=== PATIENT | female | born 1945 | race Caucasian/White ===

== ENCOUNTER 2021-04-26 13:14 | Inpatient (IN) | payer MEDICARE, MEDICAID ==
[~2021-04-26] VITALS: Ht 170.2 cm; Wt 136.1 kg
[2021-04-26 14:08] LABS: BASOPHILS 0.5 % (0-2); EOSINOPHILS 0 % (0-7); HEMATOCRIT 38.7 % (36.0-48.0); HEMOGLOBIN 12.6 g/dL (12-16); LYMPHOCYTES 4.3 % (15-50); MCH 29.5 pg (26.0-34.0); MCHC 32.6 g/dL (31.0-37.0); MCV 90.5 fL (80.0-100.0); MEAN PLATELET VOLUME 9.2 fL (7.4-10.4); MONOCYTES 4.7 % (2-11); NEUTROPHILS 90.5 % (40-80); RBC 4.27 10x6/uL (4.00-5.40); RDW 15.7 % (11.5-14.5); WBC 11.2 10x3/uL (4.8-10.8)
[2021-04-26 14:17] LABS: ALBUMIN 3.8 g/dL (3.4-5.0); ANION GAP 12.8 mmol/L (8-16); BILIRUBIN - TOTAL 0.44 mg/dL (0.2-1.3); CALCIUM 8.9 mg/dL (8.5-10.1); CARBON DIOXIDE 28.9 mmol/L (21.0-32.0); CREATININE - SERUM 1.9 mg/dL (0.6-1.3); PROTEIN - SERUM 7.7 g/dL (6.4-8.2)
[2021-04-26 14:19] LABS: PLATELET COUNT 183 10x3/uL (130-400)
[2021-04-26 14:35] LABS: POTASSIUM - SERUM 2.7 mmol/L (3.5-5.1)
[2021-04-26 15:23] LABS: BILIRUBIN NEGATIVE (NEGATIVE); KETONE NEGATIVE mg/dL (< 1+); NITRITE NEGATIVE (NEGATIVE); PH 5.5 (5.0-8.0); UROBILINOGEN NORMAL mg/dL (< 2)
--- NOTE | 2021-04-26 16:59 | NUR ---
1ST K+ RIDER INFUSION COMPLETE AT 1610
--- NOTE | 2021-04-26 17:00 | NUR ---
2ND K+ RIDER INFUSION COMPLETE AT 1700
[2021-04-26 17:22] VITALS: BP 144/61
--- NOTE | 2021-04-26 17:37 | NUR ---
NS INFUSION AND K+ RIDER (3RD) INFUSIONS TO BE STOPPED IN ER AT 1800 AND CONT'D IN HOSPITAL
[2021-04-26 20:00] VITALS: BP 140/61
--- NOTE | 2021-04-26 20:00 | NUR ---
RECIEVED IN ROOM FROM ER, ALERT AND ORIENTIATED, FX TO RIGH TSHOULDER AND C/O PAIN TO BACK OF RIGHT KNEE, LIMITED MOVEMENT, CALLED TO GET MEDICATION LIST, STATES SHE GETS HER MEDS PRE PACKAGED AND HE GIVES THEM TO HER DAILY, SEE ASSESSMENT, CALL LIGHT IN REACH
[2021-04-26] MEDS ORDERED: GABAPENTIN300 MG PO (20:24)
[2021-04-26] MEDS ORDERED: CELEXA10 MG PO (20:25)
[2021-04-26] MEDS ORDERED: LIPITOR40 MG PO (20:25)
[2021-04-26] MEDS ORDERED: FUROSEMIDE20 MG PO (20:28)
[2021-04-26] MEDS ORDERED: GLIMEPIRIDE4 MG PO (20:29)
[2021-04-26] MEDS ORDERED: SYNTHROID75 MCG PO (20:30)
[2021-04-26] MEDS ORDERED: PROTONIX40 MG PO (20:31)
[2021-04-26] MEDS ORDERED: CLARITIN 10 MG10 MG PO (20:31)
[2021-04-26] MEDS ORDERED: POTASSIUM CHLO10 ME1 PO (20:32)
[2021-04-26] MEDS ORDERED: VESICARE10 MG PO (20:35)
[2021-04-26] MEDS ORDERED: MYSOLINE 50 MG50 MG PO (20:41)
[2021-04-26 22:42] LABS: CKMB 1.3 U/L (0.0-3.6); CREATINE KINASE 204 UL (21-215); TROPONIN-I < 0.017 ng/mL (0.000-0.060)
--- NOTE | 2021-04-26 23:00 | NUR ---
SLING PLACED TO RIGHT ARM, INCONTIENT OF STOOL, STATES HAS CHRONIC DIARRHEA
[2021-04-27] VITALS (7 sets, daily range): BP systolic 100–140; BP diastolic 50–67; BMI 47.1
[2021-04-27 06:53] LABS: BASOPHILS 0.1 % (0-2); EOSINOPHILS 0 % (0-7); HEMATOCRIT 38.5 % (36.0-48.0); HEMOGLOBIN 12.3 g/dL (12-16); IMMATURE GRANULOCYTES 0.3 % (0-5); LYMPHOCYTE ABS# 0.85 10x3/uL (1.18-3.74); LYMPHOCYTES 11.5 % (15-50); MCH 29.4 pg (26.0-34.0); MCHC 31.9 g/dL (31.0-37.0); MCV 92.1 fL (80.0-100.0); MEAN PLATELET VOLUME 11.3 fL (7.4-10.4); MONOCYTES 10.2 % (2-11); NEUTROPHIL ABS# 5.78 10x3/uL (1.56-6.13); NEUTROPHILS 77.9 % (40-80); PLATELET COUNT 192 10x3/uL (130-400); RBC 4.18 10x6/uL (4.00-5.40)
[2021-04-27 07:15] LABS: WBC 7.4 10x3/uL (4.8-10.8)
[2021-04-27 07:21] LABS: ALBUMIN 3.5 g/dL (3.4-5.0); ANION GAP 13.2 mmol/L (8-16); BILIRUBIN - TOTAL 0.42 mg/dL (0.2-1.3); CALCIUM 8.5 mg/dL (8.5-10.1); CREATININE - SERUM 1.7 mg/dL (0.6-1.3); POTASSIUM - SERUM 3.2 mmol/L (3.5-5.1); PROTEIN - SERUM 6.9 g/dL (6.4-8.2)
--- NOTE | 2021-04-27 13:30 | NUR ---
REHAB PRESCREEN RECEIVED. PATIENT IS [facility] AND WE WILL NEED BOTH HER OCCUPATIONAL THERAPY AND PHYSICAL THERAPY EVALUATIONS TO DO HER SCREEN. WE WILL CONTINUE TO FOLLOW. THANK YOU FOR THIS REFERRAL. MADELAINE MAY RN CLINICAL LIAISON, [facility].
[2021-04-28 00:16] VITALS: BP 110/56
[2021-04-28 04:25] VITALS: BP 108/50
[2021-04-28 06:30] LABS: BASOPHILS 0.5 % (0-2); EOSINOPHILS 0.5 % (0-7); HEMATOCRIT 32.7 % (36.0-48.0); HEMOGLOBIN 10.6 g/dL (12-16); LYMPHOCYTES 12.2 % (15-50); MCH 29.7 pg (26.0-34.0); MCHC 32.5 g/dL (31.0-37.0); MCV 91.4 fL (80.0-100.0); MEAN PLATELET VOLUME 9.3 fL (7.4-10.4); MONOCYTES 12.1 % (2-11); NEUTROPHILS 74.7 % (40-80); RBC 3.58 10x6/uL (4.00-5.40); RDW 15.7 % (11.5-14.5); WBC 6.9 10x3/uL (4.8-10.8)
[2021-04-28 06:49] LABS: ALBUMIN 2.8 g/dL (3.4-5.0); BILIRUBIN - TOTAL 0.41 mg/dL (0.2-1.3); CARBON DIOXIDE 28.7 mmol/L (21.0-32.0); CREATININE - SERUM 1.5 mg/dL (0.6-1.3); MAGNESIUM - SERUM 2.2 mg/dL (1.8-2.4); PROTEIN - SERUM 6.3 g/dL (6.4-8.2)
[2021-04-28 06:52] LABS: PLATELET COUNT 147 10x3/uL (130-400)
[2021-04-28 07:05] LABS: ANION GAP 9.7 mmol/L (8-16); POTASSIUM - SERUM 3.4 mmol/L (3.5-5.1)
--- NOTE | 2021-04-28 07:30 | NUR ---
ASSISTED WITH BED TRAN PER STAFF. VOIDED 200 CC ODIFEROUS URINE, SLIGHTLY CLOUDY. JOYCELYN CARE PER STAFF.
[2021-04-28 08:20] VITALS: BP 152/82
--- NOTE | 2021-04-28 09:01 | NUR ---
AWAKE AND ALERT. SITTING UP IN BED EATING BREAKFAST. LUNGS ARE CLEAR BILATERALLY BUT DIMINISHED IN LOWER LOBES, NO COUGH NOTED. SKIN IS INTACT WITHOUT REDNESS. MOVES ALL DIGITS ON RIGHT HAND FREELY. IV TO RIGHT HAND IS PATENT WITHOUT REDNESS AT INSERTION SITE. DENIES NEEDS.
--- NOTE | 2021-04-28 10:00 | NUR ---
ATE MOST OF BREAKFAST. TOOK AM MEDS WITHOUT DIFFICULTY. DENIES NEEDS.
--- NOTE | 2021-04-28 12:00 | NUR ---
FSBS 141. NO COVERAGE REQUIRED.
[2021-04-28 13:22] VITALS: BP 132/83
--- NOTE | 2021-04-28 19:52 | NUR ---
PATIENT RESTING IN BED WITH NO S/S OF DISTRESS AND DENIES NEEDS AT THIS TIME. BED IN LOWEST POSITION AND CALL LIGHT IN REACH. ENCOURAGED PATIENT TO CALL WITH NEEDS.
--- NOTE | 2021-04-28 19:53 | NUR ---
ATE MOST OF SUPPER. DENIES NEEDS. UP TO BR WITH ONE PERSON MIN ASSIST. NO BM AT THIS TIME JUST FLATUS. NO CHANGES NOTED.
[2021-04-28 20:00] VITALS: BP 122/56
--- NOTE | 2021-04-28 21:11 | NUR ---
ADMINISTERED MEDS PER ORDERS. PATIENT TANYA WELL. ENCOURAGED PATIENT TO CALL WITH NEEDS.
[2021-04-29] VITALS: BP 111/58
[2021-04-29 04:00] VITALS: BP 125/54
[2021-04-29 06:24] LABS: BASOPHILS 0.7 % (0-2); EOSINOPHILS 1.2 % (0-7); HEMATOCRIT 32.1 % (36.0-48.0); HEMOGLOBIN 10.7 g/dL (12-16); MCH 30.7 pg (26.0-34.0); MCHC 33.4 g/dL (31.0-37.0); MCV 91.9 fL (80.0-100.0); MEAN PLATELET VOLUME 9.6 fL (7.4-10.4); MONOCYTES 11.2 % (2-11); NEUTROPHILS 67.9 % (40-80); PLATELET COUNT 151 10x3/uL (130-400); RDW 15.5 % (11.5-14.5); WBC 5.3 10x3/uL (4.8-10.8)
[2021-04-29 07:13] LABS: ALBUMIN 2.6 g/dL (3.4-5.0); ANION GAP 13.3 mmol/L (8-16); BILIRUBIN - TOTAL 0.32 mg/dL (0.2-1.3); CALCIUM 8.1 mg/dL (8.5-10.1); CREATININE - SERUM 1.5 mg/dL (0.6-1.3); POTASSIUM - SERUM 3.3 mmol/L (3.5-5.1); PROTEIN - SERUM 6.1 g/dL (6.4-8.2)
--- NOTE | 2021-04-29 08:17 | NUR ---
AWAKE AND ALERT. ORIENTED X3. NO C/O AT THIS TIME. LUNGS ARE CLEAR BILATERALLY, NO COUGH NOTED. SKIN IS INTACT WITHOUT REDNESS. RIGHT ARM IN SLING, MOVES DIGITS FREELY. IV TO LEFT FOREARM IS PATENT WITHOUT REDNESS AT INSERTION SITE. DENIES NEEDS.
[2021-04-29 08:27] VITALS: BP 122/66
--- NOTE | 2021-04-29 09:25 | NUR ---
ATE MOST OF BREAKFAST. TOOK AM MEDS WITHOUT DIFFICULTY. REQUESTED AND GIVEN ONE HYDROCODONE FOR C/O RIGHT ARM PAIN LEVEL 5. WILL MONITOR.
--- NOTE | 2021-04-29 12:00 | NUR ---
FSBS 139. NO C/O AT THIS TIME. DENIES NEEDS.
[2021-04-29 13:02] VITALS: BP 116/56
--- NOTE | 2021-04-29 15:00 | NUR ---
RESTING QUIETLY IN BED AT THIS TIME. NO NEEDS NOTED.
[2021-04-29 17:27] VITALS: BP 131/69
--- NOTE | 2021-04-29 19:54 | NUR ---
ATE MOST OF SUPPER. DENIES NEEDS. NO CHANGES NOTED. ASSISTED WITH BED TRAN PER STAFF. VOIDED WITHOUT DIFFICULTY.
--- NOTE | 2021-04-29 19:55 | NUR ---
PATIENT RESTING IN BED WITH NO S/S OF DISTRESS AND REQUESTED A PAIN PILL. ADMINISTERED MEDS PER ORDERS. PATIENT TANYA WELL AND DENIES OTHER NEEDS AT THIS TIME. BED IN LOWEST POSITION AND CALL LIGHT IN REACH. ENCOURAGED PATIENT TO CALL WITH NEEDS.
[2021-04-29 20:00] VITALS: BP 119/41
[2021-04-30] VITALS: BP 110/52
[2021-04-30 04:00] VITALS: BP 124/57; BP 124/7
[2021-04-30 06:13] LABS: BASOPHILS 0.5 % (0-2); EOSINOPHILS 1.6 % (0-7); HEMATOCRIT 32.3 % (36.0-48.0); HEMOGLOBIN 10.7 g/dL (12-16); LYMPHOCYTES 16.7 % (15-50); MCH 30.3 pg (26.0-34.0); MCHC 33.2 g/dL (31.0-37.0); MCV 91.3 fL (80.0-100.0); MEAN PLATELET VOLUME 9.5 fL (7.4-10.4); MONOCYTES 11.6 % (2-11); NEUTROPHILS 69.6 % (40-80); PLATELET COUNT 173 10x3/uL (130-400); RBC 3.54 10x6/uL (4.00-5.40); RDW 15.6 % (11.5-14.5)
[2021-04-30 06:39] LABS: ALBUMIN 2.8 g/dL (3.4-5.0); ANION GAP 11.2 mmol/L (8-16); BILIRUBIN - TOTAL 0.37 mg/dL (0.2-1.3); CALCIUM 8.7 mg/dL (8.5-10.1); CARBON DIOXIDE 27.6 mmol/L (21.0-32.0); CREATININE - SERUM 1.5 mg/dL (0.6-1.3); POTASSIUM - SERUM 3.8 mmol/L (3.5-5.1); PROTEIN - SERUM 6.6 g/dL (6.4-8.2)
--- NOTE | 2021-04-30 07:45 | NUR ---
PT AWAKE AND ALERT AND ORIENTED. CL IN REACH. NO NEEDS AT THIS TIME. WCTM
[2021-04-30 09:25] VITALS: BP 127/60
--- NOTE | 2021-04-30 10:17 | NUR ---
IV THERAPY DRESSING CHANGED IT WAS NOT PROPERLY ATTACHED. CL IN REACH. STORIES TOLD ABOUT HER MOVING DOWN FROM [place] TO BE WITH HER DAUGHTER AND SON IN [place] THAT WORKED AT [employer] FOR 21 YEARS. NO FURTHER NEEDS AT THIS TIME. IBIS
[2021-04-30 12:45] VITALS: BP 106/59
[2021-04-30 15:46] VITALS: BP 111/43
--- NOTE | 2021-04-30 15:54 | NUR ---
PT TAKING A NAP. NO NEEDS AT THIS TIME. STATED SHE GOT UP AND "SCOOTED UP THE SIDE OF THE BED" WITH PT. CL IN REACH. BED ALARM ON. WCTM
--- NOTE | 2021-04-30 19:08 | NUR ---
OT NOTE: PT COMPLETED SUPINE TO SIT WITH MAX A. PT COMPLETED EOB SITTING WITH SBA. PT COMPLETED SIT TO STAND WITH MAX A. PT COMPLETED SIDE STEPPING WITH MOD A. PT REQUIRED TOTAL A FOR POSITIONING SLING. [phone] SHAUN SALCEDO COTA
--- NOTE | 2021-04-30 19:36 | NUR ---
PATIENT RESTING IN BED WITH NO S/S OF DISTRESS. PATIENT REQUESTED PAIN MEDS WITH HER NIGHT MEDS AND DENIES OTHER NEEDS AT THIS TIME. BED IN LOWEST POSITION AND CALL LIGHT IN REACH. ENCOURAGED PATIENT TO CALL WITH NEEDS.
[2021-04-30 20:00] VITALS: BP 139/88
--- NOTE | 2021-04-30 21:18 | NUR ---
ADMINISTERED MEDS PER ORDERS. PATIENT TANYA WELL. ENCOURAGED PATIENT TO CALL WITH NEEDS.
[2021-05-01] VITALS: BP 99/72
[2021-05-01 04:00] VITALS: BP 122/58
[2021-05-01 07:01] LABS: BASOPHILS 0.9 % (0-2); EOSINOPHILS 2.6 % (0-7); HEMATOCRIT 33.2 % (36.0-48.0); HEMOGLOBIN 10.7 g/dL (12-16); LYMPHOCYTES 21.8 % (15-50); MCH 29.4 pg (26.0-34.0); MCHC 32.2 g/dL (31.0-37.0); MCV 91.2 fL (80.0-100.0); MEAN PLATELET VOLUME 9.4 fL (7.4-10.4); MONOCYTES 9.3 % (2-11); NEUTROPHILS 65.4 % (40-80); PLATELET COUNT 206 10x3/uL (130-400); RBC 3.64 10x6/uL (4.00-5.40); RDW 15.5 % (11.5-14.5); WBC 5.4 10x3/uL (4.8-10.8)
[2021-05-01 07:08] LABS: ALBUMIN 2.6 g/dL (3.4-5.0); ANION GAP 9.7 mmol/L (8-16); BILIRUBIN - TOTAL 0.41 mg/dL (0.2-1.3); CALCIUM 8.7 mg/dL (8.5-10.1); CARBON DIOXIDE 28.9 mmol/L (21.0-32.0); CREATININE - SERUM 1.4 mg/dL (0.6-1.3); POTASSIUM - SERUM 3.6 mmol/L (3.5-5.1); PROTEIN - SERUM 6.4 g/dL (6.4-8.2)
[2021-05-01 09:03] VITALS: BP 132/59
[2021-05-01 12:29] VITALS: Ht 170.2 cm; Wt 136.1 kg
[2021-05-01 12:50] VITALS: BP 143/62
--- NOTE | 2021-05-01 15:17 | NUR ---
OT NOTE: PT COMPLETED SUPINE TO SIT WITH MOD-MAX A. PT COMPLETED EOB SITTING WITH SBA. PT COMPLETED HAIR GROOMING WITH SETUP. PT COMPLETED FACE HYGIENE WITH SETUP. PT REQUIRED TOTAL A FOR LB HYGIENE. [phone] THANK YOU,FRANKIE SIERRA
[2021-05-01 17:21] VITALS: BP 113/59
[2021-05-01 20:00] VITALS: BP 114/66
[2021-05-02] VITALS: BP 125/49
[2021-05-02 04:00] VITALS: BP 137/58
[2021-05-02 06:24] LABS: BASOPHILS 1.2 % (0-2); EOSINOPHILS 3.2 % (0-7); HEMATOCRIT 28.9 % (36.0-48.0); HEMOGLOBIN 9.6 g/dL (12-16); MCH 30.2 pg (26.0-34.0); MCHC 33.3 g/dL (31.0-37.0); MCV 90.9 fL (80.0-100.0); MEAN PLATELET VOLUME 9.4 fL (7.4-10.4); MONOCYTES 9.9 % (2-11); NEUTROPHILS 60.7 % (40-80); PLATELET COUNT 195 10x3/uL (130-400); RBC 3.19 10x6/uL (4.00-5.40); RDW 15.2 % (11.5-14.5); WBC 5.5 10x3/uL (4.8-10.8)
[2021-05-02 06:35] LABS: ALBUMIN 2.3 g/dL (3.4-5.0); ANION GAP 10.4 mmol/L (8-16); BILIRUBIN - TOTAL 0.31 mg/dL (0.2-1.3); CALCIUM 8.5 mg/dL (8.5-10.1); CARBON DIOXIDE 28.2 mmol/L (21.0-32.0); CREATININE - SERUM 1.3 mg/dL (0.6-1.3); POTASSIUM - SERUM 3.6 mmol/L (3.5-5.1); PROTEIN - SERUM 5.8 g/dL (6.4-8.2)
[2021-05-02 07:57] VITALS: BP 142/88
--- NOTE | 2021-05-02 08:20 | NUR ---
AWAKE AND ALERT. ORIENTED X3. NO C/O AT THIS TIME. LUNGS ARE CLEAR BUT SLIGHTLY DIMINISHED. DENIES COUGH. SKIN IS INTACT WITHOUT REDNESS. IV TO LEFT FOREARM IS PATENT WITHOUT REDNESS AT INSERTION SITE. DENIES NEEDS.
--- NOTE | 2021-05-02 09:27 | NUR ---
I CALLED AND SPOKE WITH MILKA WITH [facility]. THE PATIENTS AUTH IS STILL IN PROCESS. I WILL CALL BACK AFTER IDT TO SEE IF WE HAVE A DETERMINATION OR NOT YET. MADELAINE MAY RN CLINICAL LIAISON, INPATIENT REHAB.
--- NOTE | 2021-05-02 10:09 | NUR ---
ATE ALL OF BREAKFAST SHE WANTED. REQUESTED NAD GIVEN ONE HYDROCODONE PO FOR PAIN LEVEL 5 TO RIGHT ARM. TOOK AM MEDS WITHOUT DIFFICULTY. DENIES NEEDS.
--- NOTE | 2021-05-02 12:00 | NUR ---
FSBS 111. NO COVERAGE REQUIRED.
[2021-05-02 12:06] VITALS: BP 119/54
--- NOTE | 2021-05-02 15:37 | NUR ---
OT NOTE: PT DOING WELL; BED MOB WITH MOD ASSIST FOR SUPINE TO SIT; EOB SITTING BALANCE WAS GOOD. ABLE TO PERFORM SIMPLE GROOMING TASKS WITH SET UP/MIN ASSIST; MOD ASSIST WITH DONNING GOWN; MAX ASSIST WITH TOILETING AND LE DRESSING; SIT TO STAND WITH MOD ASSIST AND MOD ASSIST FOR STEADYING WHILE STANDING. PT WILL REUQIRE IP REHAB PRIOR TO DC HOME. VANNESSA GUO, OTR/L [phone]
--- NOTE | 2021-05-02 15:57 | NUR ---
RESTING QUIETLY IN BED. DISCUSSED MENU CHOICES WITH PATIENT SO SHE COULD ORDER THINGS SHE LIKES TO EAT. WILL MONITOR.
--- NOTE | 2021-05-02 17:00 | NUR ---
FSBS 91. DINNER SERVED IN ROOM. DENIES NEEDS.
--- NOTE | 2021-05-02 17:46 | NUR ---
HAD MEDIUM DARK BROWN STOOL AFTER SUPPOSITORIES GIVEN. SKIN CARE PER STAFF. REPOSITIONED IN BED FOR COMFORT. CONTINUES WITH SUPPER.
[2021-05-02 17:49] VITALS: BP 142/50
--- NOTE | 2021-05-02 18:16 | NUR ---
ATE ALMOST ALL OF SUPPER TRAY. DENIES NEEDS. NO CHANGES NOTED.
[2021-05-02 20:00] VITALS: BP 125/49
--- NOTE | 2021-05-02 20:00 | NUR ---
ALERT RESTING IN BED DENIES PAIN OR NEEDS AT THIS TIME, SEE SHIFT ASSESSMENT, CALL SARA MCCORMACK
[2021-05-03 04:00] VITALS: BP 137/64
[2021-05-03 05:30] LABS: BASOPHILS 1.1 % (0-2); EOSINOPHILS 3.6 % (0-7); HEMATOCRIT 28.7 % (36.0-48.0); HEMOGLOBIN 9.3 g/dL (12-16); LYMPHOCYTES 23.5 % (15-50); MCH 29.9 pg (26.0-34.0); MCHC 32.4 g/dL (31.0-37.0); MCV 92.2 fL (80.0-100.0); MONOCYTES 8.6 % (2-11); NEUTROPHILS 63.2 % (40-80); PLATELET COUNT 224 10x3/uL (130-400); RBC 3.11 10x6/uL (4.00-5.40); RDW 15.7 % (11.5-14.5); WBC 5.3 10x3/uL (4.8-10.8)
[2021-05-03 05:34] LABS: ALBUMIN 2.2 g/dL (3.4-5.0); ANION GAP 8.4 mmol/L (8-16); BILIRUBIN - TOTAL 0.28 mg/dL (0.2-1.3); CALCIUM 8.7 mg/dL (8.5-10.1); CARBON DIOXIDE 29.4 mmol/L (21.0-32.0); CREATININE - SERUM 1.2 mg/dL (0.6-1.3); POTASSIUM - SERUM 3.8 mmol/L (3.5-5.1); PROTEIN - SERUM 5.6 g/dL (6.4-8.2)
--- NOTE | 2021-05-03 08:02 | NUR ---
AWAKE AND ALERT. ORIENTED X3. ASSISTED WITH BED TRAN PER STAFF. VOIDED WITHOUT DIFFICULTY. SKIN CARE PER STAFF. LUNGS ARE CLEAR BILATERALLY, NO COUGH NOTED. SKIN IS INTACT WITHOUT REDNESS. IV TO LEFT FOREARM IS PATENT WITHOUT REDNESS AT INSERTION SITE. RIGHT ARM IN SLING, MOVES DIGITS FREELY. DENIES NEEDS.
--- NOTE | 2021-05-03 08:03 | NUR ---
RECEIVED A MESSAGE FROM [employer]. PATIENTS CASE HAS GONE TO THE EMPLOYMENT PROGRAMS ANALYST AND THEY WOULD LIKE TO HAVE A P2P WITH THE ACUTE PRACTITIONER BY NOON TODAY. IF THEY WANT TO DO THIS, IT CAN BE DONE BY CALLING [phone], OPTION #5. I WILL LET VANNESSA COE RN CM KNOW. MADELAINE MAY RN CLINICAL LIAISON, INPATIENT REHAB.
[2021-05-03 09:11] VITALS: BP 139/58
[2021-05-03 11:32] VITALS: BP 134/61
--- NOTE | 2021-05-03 14:55 | MORECARE ---
CASE MANAGEMENT DISCHARGE SUMMARY PATIENT: MANUEL QUEZADA UNIT: [id number] ADM DATE: 04/26/21 AGE: 75 : 43 SEX: F ROOM/BED: [facility] AUTHOR: OZIEL,DOC PHYSICIAN: REFERRING PHYSICIAN: MANPREET JUNE MD DATE OF SERVICE: 05/03/21 Case Management Discharge Planning Summary COMMENTS ENTERED DATE: 05/03/21 14:53 CT COMMENT TYPE: Discharge Planning REVIEWER: Renetta Guidry PATIENT INSURANCE HAS DENIED INPATIENT REHAB. I SPOKE WITH HER AND SHE WOULD LIKE REHAB AT [facility] OR [facility] IN [place]. I AM FAXING A REFERRAL TO [facility] NOW. WILL BE WAITING FOR [facility] TO FOLLOW AND ASSIST NEEDED. DCP REVIEW SUMMARY ANTICIPATED D/C DATE: EXPECTED LOS : CASE STATUS: DCP Initiated INITIAL REVIEW: 04/26/2021 INITIAL REVIEWER: Renetta Guidry FINAL DISCHARGE DISPOSITION: : FINAL REVIEWER: FINAL REVIEW DATE: DCP Focus Questions & Answers DCP Screen QUESTION: ANSWER High Risk Factors: : Poor health literacy DCP Evaluation QUESTION: ANSWER Patient's ability to cope with chronic illness : d. No chronic illness Would patient like to participate in any Care Coordination programs (if applicable): : Not applicable Mental health screen: : No mental health history DCP Re-evaluation QUESTION: ANSWER Would patient like to participate in any Care Coordination programs (if applicable): : Not applicable PATIENT: MANUEL QUEZADA ENCOUNTER: [id number] MEDICAL RECORD#: [id number] ADMISSION DATE: 04/26/2021 DISCHARGE DATE: ATTENDING MD: : AGE: 75 MARITAL STATUS: M DC PLAN ID: [id number] FACILITY: [facility] PRINTED ON: 05/03/21 14:55 CT All edits/amendments must be made on the electronic document DICTATION DATE: 05/03/211453 HEAD OF DATA: ALIREZA 05/03/211453 RPT#: [id number] DC DATE: STATUS: ADM IN [facility] [address] [place] [address] END OF REPORT
[2021-05-03 17:39] VITALS: BP 143/69
--- NOTE | 2021-05-03 18:26 | NUR ---
ATE ALL OF SUPPER. ASSISTED WITH BED TRAN PER STAFF. VOIDED CLEAR YELLOW URINE. SKIN CARE PER STAFF. NO CHANGES NOTED. DENIES NEEDS.
[2021-05-03 20:00] VITALS: BP 130/54
--- NOTE | 2021-05-03 20:00 | NUR ---
ALERT RESTING IN BED, DENIES PAIN OR NEEDS AT THIS TIME, RIGHT ARM IN SLING, SEE SHIFT ASSESSMENT, CALL LIGHT IN REACH
--- NOTE | 2021-05-03 22:59 | NUR ---
OT NOTE: PT REQUIRED TOTAL A TO ADJUST RUE SLING. PT COMPLETED SUPINE TO SIT WITH MAX A. PT COMPLETE EOB SITTING WITH SBA. PT COMPLETED HAIR GROOMING WITH SETUP. PT COMPLETED FACE HYGIENE WITH SETUP AT EOB. [phone] THANK YOU,FRANKIE SIERRA
[2021-05-04 04:00] VITALS: BP 140/74
[2021-05-04 06:02] LABS: BASOPHILS 0.7 % (0-2); EOSINOPHILS 1.6 % (0-7); HEMATOCRIT 27.4 % (36.0-48.0); HEMOGLOBIN 9.1 g/dL (12-16); LYMPHOCYTES 11.6 % (15-50); MCH 30.2 pg (26.0-34.0); MCHC 33.4 g/dL (31.0-37.0); MEAN PLATELET VOLUME 8.8 fL (7.4-10.4); MONOCYTES 6.7 % (2-11); NEUTROPHILS 79.4 % (40-80); PLATELET COUNT 249 10x3/uL (130-400); RBC 3.03 10x6/uL (4.00-5.40); RDW 15.3 % (11.5-14.5)
[2021-05-04 06:39] LABS: MCV 90.2 fL (80.0-100.0); WBC 6.7 10x3/uL (4.8-10.8)
[2021-05-04 07:37] LABS: ALBUMIN 2.4 g/dL (3.4-5.0); ANION GAP 11.4 mmol/L (8-16); BILIRUBIN - TOTAL 0.29 mg/dL (0.2-1.3); CALCIUM 9.1 mg/dL (8.5-10.1); CARBON DIOXIDE 29.2 mmol/L (21.0-32.0); CREATININE - SERUM 1.2 mg/dL (0.6-1.3); POTASSIUM - SERUM 3.6 mmol/L (3.5-5.1); PROTEIN - SERUM 5.7 g/dL (6.4-8.2)
[2021-05-04 08:17] VITALS: BP 144/76
--- NOTE | 2021-05-04 11:23 | NUR ---
PATIENT UP IN CHAIR,WITHOUT NEEDS.
[2021-05-04 12:19] VITALS: BP 131/72
--- NOTE | 2021-05-04 13:05 | NUR ---
OT NOTE: PT COMPLETED HAIR GROOMING WITH SETUP. PT COMPLETED FACE HYGIENE WITH SETUP. PT COMPLETED ORAL CARE WITH SETUP USING TOOTHETTE. [phone] THANK YOU,FRANKIE SIERRA
[2021-05-04 16:59] VITALS: BP 135/76
[2021-05-04 20:00] VITALS: BP 93/60
[2021-05-05 00:31] VITALS: BP 131/65
[2021-05-05 04:29] VITALS: BP 92/53
[2021-05-05 09:08] VITALS: BP 114/51
[2021-05-05 09:16] LABS: BASOPHILS 0.8 % (0-2); EOSINOPHILS 3.7 % (0-7); HEMATOCRIT 30.3 % (36.0-48.0); HEMOGLOBIN 9.8 g/dL (12-16); LYMPHOCYTES 18.9 % (15-50); MCH 29.7 pg (26.0-34.0); MCHC 32.2 g/dL (31.0-37.0); MCV 92.1 fL (80.0-100.0); MEAN PLATELET VOLUME 8.6 fL (7.4-10.4); MONOCYTES 7.8 % (2-11); NEUTROPHILS 68.8 % (40-80); PLATELET COUNT 278 10x3/uL (130-400); RBC 3.29 10x6/uL (4.00-5.40); RDW 15.8 % (11.5-14.5); WBC 6.3 10x3/uL (4.8-10.8)
[2021-05-05 09:29] LABS: ALBUMIN 2.5 g/dL (3.4-5.0); ANION GAP 8.8 mmol/L (8-16); BILIRUBIN - TOTAL 0.28 mg/dL (0.2-1.3); CALCIUM 8.9 mg/dL (8.5-10.1); CREATININE - SERUM 1.2 mg/dL (0.6-1.3); POTASSIUM - SERUM 3.8 mmol/L (3.5-5.1); PROTEIN - SERUM 6.1 g/dL (6.4-8.2)
[2021-05-05 14:38] VITALS: BP 112/59
--- NOTE | 2021-05-05 15:50 | NUR ---
PT ASSISTED ON AND OFF BEDPAN AND PULLED UP IN BED. REQUESTED AND RECEIVED ICE WATER. CL IN REACH. WCTM
[2021-05-05 18:29] VITALS: BP 124/49
--- NOTE | 2021-05-05 19:19 | NUR ---
ASSISTED PATIENT ON AND OFF BEDPAN. PATIENT VOIDED AND HAD A LARGE, LOOSE BM. PATIENT DENIES OTHER NEEDS AT THIS TIME. BED IN LOWEST POSITION AND CALL LIGHT IN REACH. ENCOURAGED PATIENT TO CALL WITH NEEDS.
[2021-05-05 20:00] VITALS: BP 123/57
--- NOTE | 2021-05-05 20:55 | NUR ---
ADMINISTERED MEDS PER ORDERS. PATIENT TANYA WELL. ENCOURAGED TO CALL WITH NEEDS.
[2021-05-06] VITALS (7 sets, daily range): BP systolic 116–139; BP diastolic 49–78
[2021-05-06 07:01] LABS: HEMATOCRIT 27.1 % (36.0-48.0); HEMOGLOBIN 8.9 g/dL (12-16); LYMPHOCYTES 26.1 % (15-50); MCH 29.9 pg (26.0-34.0); MCHC 32.8 g/dL (31.0-37.0); MEAN PLATELET VOLUME 8.5 fL (7.4-10.4); MONOCYTES 7.7 % (2-11); NEUTROPHILS 61.2 % (40-80); PLATELET COUNT 240 10x3/uL (130-400); RBC 2.98 10x6/uL (4.00-5.40); WBC 5.9 10x3/uL (4.8-10.8)
[2021-05-06 07:18] LABS: ALBUMIN 2.5 g/dL (3.4-5.0); ANION GAP 7.2 mmol/L (8-16); BILIRUBIN - TOTAL 0.28 mg/dL (0.2-1.3); CALCIUM 8.6 mg/dL (8.5-10.1); CARBON DIOXIDE 32.4 mmol/L (21.0-32.0); CREATININE - SERUM 1.3 mg/dL (0.6-1.3); POTASSIUM - SERUM 3.6 mmol/L (3.5-5.1); PROTEIN - SERUM 5.9 g/dL (6.4-8.2)
--- NOTE | 2021-05-06 20:14 | NUR ---
ADMINISTERED MEDS PER ORDERS. PATIENT TANYA WELL. ENCOURAGED TO CALL WITH NEEDS.
[2021-05-07] VITALS: BP 117/48
[2021-05-07 04:00] VITALS: BP 114/50
[2021-05-07 05:42] LABS: BASOPHILS 1.2 % (0-2); EOSINOPHILS 3.6 % (0-7); HEMATOCRIT 26.5 % (36.0-48.0); HEMOGLOBIN 8.6 g/dL (12-16); MCH 29.7 pg (26.0-34.0); MCHC 32.5 g/dL (31.0-37.0); MCV 91.5 fL (80.0-100.0); MEAN PLATELET VOLUME 8.4 fL (7.4-10.4); MONOCYTES 9.3 % (2-11); NEUTROPHILS 57.9 % (40-80); PLATELET COUNT 234 10x3/uL (130-400); RBC 2.89 10x6/uL (4.00-5.40); RDW 16.1 % (11.5-14.5)
[2021-05-07 06:19] LABS: ALBUMIN 2.5 g/dL (3.4-5.0); ANION GAP 8.3 mmol/L (8-16); BILIRUBIN - TOTAL 0.33 mg/dL (0.2-1.3); CALCIUM 8.5 mg/dL (8.5-10.1); CARBON DIOXIDE 31.1 mmol/L (21.0-32.0); CREATININE - SERUM 1.4 mg/dL (0.6-1.3); POTASSIUM - SERUM 3.4 mmol/L (3.5-5.1); PROTEIN - SERUM 5.6 g/dL (6.4-8.2)
--- NOTE | 2021-05-07 07:24 | NUR ---
AWAKE AND ALERT. ORIENTED X3. NO C/O AT THIS TIME. LUNGS ARE CLEAR BUT DIMINISHED IN LOWER LOBES. ENCOURAGED TO USE IS INSTRUCTED. SKIN IS INTACT WITHOUT REDNESS. SLING IN PLACE TO RIGHT ARM, MOVES DIGITS FREELY. DENIES NEEDS. NO IV AT THIS TIME.
[2021-05-07 08:43] VITALS: BP 125/73
--- NOTE | 2021-05-07 09:30 | NUR ---
ATE ALL OF BREAKFAST. REFUSED TO TAKE MIRALAX THIS AM. TOOK AM MEDS WITHOUT DIFFICULTY. ASSISTED WITH BED TRAN PER STAFF. HAD SMALL DARK STOOL. SKIN CARE PER STAFF.
--- NOTE | 2021-05-07 11:00 | NUR ---
UP IN CHAIR AT BEDSIDE PER PT. REQUESTED AND GIVEN ONE HYDROCODONE PO FOR C/O RIGHT SHOULDER PAIN LEVEL 8. WILL MONITOR.
--- NOTE | 2021-05-07 12:04 | MORECARE ---
CASE MANAGEMENT DISCHARGE SUMMARY PATIENT: MANUEL QUEZADA UNIT: [id number] ADM DATE: 04/26/21 AGE: 75 : 44 SEX: F ROOM/BED: D.2232 AUTHOR: OZIEL,DOC PHYSICIAN: REFERRING PHYSICIAN: MANPREET JUNE MD DATE OF SERVICE: 05/07/21 Case Management Discharge Planning Summary COMMENTS ENTERED DATE: 05/07/21 11:54 CT COMMENT TYPE: Discharge Planning REVIEWER: Renetta Guidry [facility] HAS DECLINED THIS PATIENT FOR FINANCIAL REASONS. I HAVE FAXED HER REFERRAL TO [facility] AND NOTIFIED THEM. WAITING CALL BACK. CM TO FOLLOW AND ASSIST NEEDED. ENTERED DATE: 05/03/21 14:53 CT COMMENT TYPE: Discharge Planning REVIEWER: Renetta Guidry PATIENT INSURANCE HAS DENIED INPATIENT REHAB. I SPOKE WITH HER AND SHE WOULD LIKE REHAB AT [facility] OR [facility] IN [place]. I AM FAXING A REFERRAL TO [facility] NOW. WILL BE WAITING FOR [facility]. CM TO FOLLOW AND ASSIST NEEDED. DCP REVIEW SUMMARY ANTICIPATED D/C DATE: EXPECTED LOS : CASE STATUS: DCP Initiated INITIAL REVIEW: 04/26/2021 INITIAL REVIEWER: Renetta Guidry FINAL DISCHARGE DISPOSITION: : FINAL REVIEWER: FINAL REVIEW DATE: DCP Focus Questions & Answers DCP Screen QUESTION: ANSWER High Risk Factors: : Poor health literacy DCP Evaluation QUESTION: ANSWER Patient's ability to cope with chronic illness : d. No chronic illness Would patient like to participate in any Care Coordination programs (if applicable): : Not applicable Mental health screen: : No mental health history DCP Re-evaluation QUESTION: ANSWER Would patient like to participate in any Care Coordination programs (if applicable): : Not applicable PROVIDER NETWORKING REVIEW DATE: 05/03/2021 SERVICE TYPE: [facility] REVIEWER: Renetta Guidry REVIEW DATE: 05/03/2021 SERVICE TYPE: [facility] REVIEWER: Renetta Guidry PROVIDER: FINAL PROVIDER? : FINAL DATE/TIME: CT PATIENT: MANUEL QUEZADA ENCOUNTER: [id number] MEDICAL RECORD#: [id number] ADMISSION DATE: 04/26/2021 DISCHARGE DATE: ATTENDING MD: TANESHA: AGE: 75 MARITAL STATUS: M DC PLAN ID: [id number] FACILITY: [facility] PRINTED ON: 05/07/21 12:04 CT All edits/amendments must be made on the electronic document DICTATION DATE: 05/07/211203 ANTIQUE JEWELRY REPAIRER: ALIREZA 05/07/211203 RPT#: [id number] DC DATE: STATUS: ADM IN [facility] [address] [place] [address] END OF REPORT
--- NOTE | 2021-05-07 14:00 | NUR ---
ATE MOST OF LUNCH TRAY. HAD SMALL BM ON BED TRAN AT THIS TIME. BACK TO BED PER PT.
[2021-05-07 14:22] VITALS: BP 125/60
--- NOTE | 2021-05-07 16:02 | NUR ---
OT NOTE: SIT TO STAND WITH MOD ASSIST; TRANSFER FROM CHAIR TO BED WITH MOD ASSIST X 2; SIT TO SUPINE WITH MAX ASSIST; EDUCATION ON REPOSITIONING IN BED USING L UE AND B LES.. PT ABLE TO PERFORM WITH MOD ASSIST X 2; ABLE TO PERFORM SIMPLE GROOMING TASKS WITH SET UP; CONT TO REUQIRE EXT ASSIST WITH DRESSING AND TOILETING. VANNESSA GUO, OTR/L [id number]
[2021-05-07 17:23] VITALS: BP 136/44
--- NOTE | 2021-05-07 19:23 | NUR ---
ATE MOST OF SUPPER. DENIES NEEDS. NO CHANGES NOTED.
[2021-05-07 20:00] VITALS: BP 109/66
--- NOTE | 2021-05-07 20:55 | NUR ---
ADMINISTERED MEDS PER ORDERS. PATIENT TANYA WELL. ENCOURAGED PATIENT TO CALL WITH NEEDS.
[2021-05-08] VITALS: BP 115/57
[2021-05-08 04:00] VITALS: BP 124/59
[2021-05-08 05:33] LABS: BASOPHILS 0.9 % (0-2); EOSINOPHILS 3.1 % (0-7); HEMATOCRIT 26.8 % (36.0-48.0); HEMOGLOBIN 8.8 g/dL (12-16); LYMPHOCYTES 23.9 % (15-50); MCH 29.7 pg (26.0-34.0); MCHC 32.7 g/dL (31.0-37.0); MCV 90.6 fL (80.0-100.0); MEAN PLATELET VOLUME 8.6 fL (7.4-10.4); MONOCYTES 8.2 % (2-11); NEUTROPHILS 63.9 % (40-80); PLATELET COUNT 263 10x3/uL (130-400); RBC 2.96 10x6/uL (4.00-5.40); RDW 15.8 % (11.5-14.5); WBC 5.4 10x3/uL (4.8-10.8)
[2021-05-08 05:54] LABS: ALBUMIN 2.6 g/dL (3.4-5.0); ANION GAP 8.8 mmol/L (8-16); BILIRUBIN - TOTAL 0.42 mg/dL (0.2-1.3); CALCIUM 8.5 mg/dL (8.5-10.1); CARBON DIOXIDE 30.8 mmol/L (21.0-32.0); CREATININE - SERUM 1.3 mg/dL (0.6-1.3); POTASSIUM - SERUM 3.6 mmol/L (3.5-5.1); PROTEIN - SERUM 5.8 g/dL (6.4-8.2)
--- NOTE | 2021-05-08 08:00 | NUR ---
ASSISTED WITH BED TRAN PER STAFF. VOIDED ABOUT 200 cc. SKIN CARE PER STAFF.
--- NOTE | 2021-05-08 08:15 | NUR ---
AWAKE AND ALERT. ORIENTED X 3. NO C/O THIS AM. LUNGS ARE CLEAR BILATERALLY, NO COUGH NOTED. SKIN IS INTACT WITHOUT REDNESS. SLING IN PLACE TO RIGHT ARM, MOVES DIGITS FREELY. DENIES NEEDS.
[2021-05-08 09:02] VITALS: BP 127/50
--- NOTE | 2021-05-08 09:30 | NUR ---
ATE ALL OF BREAKFAST. TOOK AM MEDS WITHOUT DIFFICULTY. DENIES NEEDS.
--- NOTE | 2021-05-08 10:30 | NUR ---
UP TO CHIAR AT BEDSIDE PER PT.
[2021-05-08 13:22] VITALS: BP 139/59
--- NOTE | 2021-05-08 14:20 | NUR ---
Nutrition reassessment: Diet order: Consistent CHO PO intake 100% of meals Labs reviewed: glucose under good control Ht: 5'7" Wt: 300# +BM Chart reviewed and pt interviewed. Pt remains assessed at low nutritoinal risk. RDN will continue to monitor patient for any change in condition. Will reassess in 5-7 days.
--- NOTE | 2021-05-08 15:21 | NUR ---
REQUESTED AND GIVNE ONE HYDROCODONE PO FOR C/O RIGHT SHOULDER PAIN LEVEL 7. WILL MONITOR.
[2021-05-08 18:04] VITALS: BP 137/60
--- NOTE | 2021-05-08 19:14 | NUR ---
REFUSED LASIX THIS PM. "IT KEEPS ME UP ALL NIGHT PEEING". ATE MOST OF SUPPER. DENIES NEEDS. NO CHANGES NOTED.
[2021-05-08 19:55] VITALS: BP 135/61
--- NOTE | 2021-05-08 20:00 | NUR ---
ALERT RESTING IN BED SLING IN USE TO RIGHT ARM, DENIES PAIN OR NEEDS AT THIS TIME, SEE SHIFT ASSESSMENT,CALL LIGHT IN REACH
[2021-05-09 00:16] VITALS: BP 140/67
[2021-05-09 05:37] VITALS: BP 136/64
[2021-05-09 07:14] LABS: BASOPHILS 1.1 % (0-2); EOSINOPHILS 3.7 % (0-7); HEMATOCRIT 26.9 % (36.0-48.0); HEMOGLOBIN 8.9 g/dL (12-16); LYMPHOCYTES 22.4 % (15-50); MCH 30.1 pg (26.0-34.0); MCV 91.3 fL (80.0-100.0); MEAN PLATELET VOLUME 8.4 fL (7.4-10.4); MONOCYTES 8.2 % (2-11); NEUTROPHILS 64.6 % (40-80); PLATELET COUNT 251 10x3/uL (130-400); RBC 2.95 10x6/uL (4.00-5.40); RDW 15.8 % (11.5-14.5); WBC 5.7 10x3/uL (4.8-10.8)
[2021-05-09 07:41] LABS: ALBUMIN 2.6 g/dL (3.4-5.0); ANION GAP 9.8 mmol/L (8-16); BILIRUBIN - TOTAL 0.22 mg/dL (0.2-1.3); CALCIUM 8.2 mg/dL (8.5-10.1); CARBON DIOXIDE 29.9 mmol/L (21.0-32.0); CREATININE - SERUM 1.3 mg/dL (0.6-1.3); POTASSIUM - SERUM 3.7 mmol/L (3.5-5.1); PROTEIN - SERUM 5.3 g/dL (6.4-8.2)
[2021-05-09 09:38] VITALS: BP 138/64
[2021-05-09] MEDS ORDERED: HYDROCODONE-AC1 EAC2 PO (11:51)
--- NOTE | 2021-05-09 12:00 | MORECARE ---
CASE MANAGEMENT DISCHARGE SUMMARY PATIENT: MANUEL QUEZADA UNIT: [id number] ADM DATE: 04/26/21 AGE: 75 : 44 SEX: F ROOM/BED: D.[facility] AUTHOR: OZIEL,DOC PHYSICIAN: REFERRING PHYSICIAN: MANPREET JUNE MD DATE OF SERVICE: 05/09/21 Case Management Discharge Planning Summary COMMENTS ENTERED DATE: 05/09/21 11:57 CT COMMENT TYPE: Discharge Planning REVIEWER: Renetta Guidry [facility] WILL INSTRUCTIONAL MATERIALS DIRECTOR PATIENT TODAY FOR TRANSPORT TO THEIR FACILITY. PATIENT IN AGREEMENT. NO CHANGES TO PLAN. IMM GIVEN, SIGNED AND COPY PLACED ON CHART. ENTERED DATE: 05/07/21 11:54 CT COMMENT TYPE: Discharge Planning REVIEWER: Renetta Guidry [facility] HAS DECLINED THIS PATIENT FOR FINANCIAL REASONS. I HAVE FAXED HER REFERRAL TO [facility] AND NOTIFIED THEM. WAITING CALL BACK. CM TO FOLLOW AND ASSIST NEEDED. ENTERED DATE: 05/03/21 14:53 CT COMMENT TYPE: Discharge Planning REVIEWER: Renetta Brea PATIENT INSURANCE HAS DENIED INPATIENT REHAB. I SPOKE WITH HER AND SHE WOULD LIKE REHAB AT [facility] OR [facility] IN [place]. I AM FAXING A REFERRAL TO [facility] NOW[facility] CM TO FOLLOW AND ASSIST NEEDED. DCP REVIEW SUMMARY ANTICIPATED D/C DATE: EXPECTED LOS : CASE STATUS: DCP Initiated INITIAL REVIEW: 04/26/2021 INITIAL REVIEWER: Renetta Guidry FINAL DISCHARGE DISPOSITION: : FINAL REVIEWER: FINAL REVIEW DATE: DCP Focus Questions & Answers DCP Screen QUESTION: ANSWER High Risk Factors: : Poor health literacy DCP Evaluation QUESTION: ANSWER Patient's ability to cope with chronic illness : d. No chronic illness Would patient like to participate in any Care Coordination programs (if applicable): : Not applicable Mental health screen: : No mental health history DCP Re-evaluation QUESTION: ANSWER Would patient like to participate in any Care Coordination programs (if applicable): : Not applicable PROVIDER NETWORKING REVIEW DATE: 05/03/2021 SERVICE TYPE: Nursing Home Facility REVIEWER: Renetta Guidry REVIEW DATE: 05/03/2021 SERVICE TYPE: Nursing Home Facility REVIEWER: Renetta Guidry PROVIDER: FINAL PROVIDER? : FINAL DATE/TIME: CT PATIENT: MANUEL QUEZADA ENCOUNTER: [id number] MEDICAL RECORD#: [id number] ADMISSION DATE: 04/26/2021 DISCHARGE DATE: ATTENDING MD: TANESHA: AGE: 75 MARITAL STATUS: M DC PLAN ID: [id number] FACILITY: [facility] PRINTED ON: 05/09/21 12:00 CT All edits/amendments must be made on the electronic document DICTATION DATE: 05/09/211199 SEWING MACHINE BOBBIN WINDER: ALIREZA 05/09/21 1200 RPT#: [id number] DC DATE: STATUS: ADM IN [facility] [address] [place] [address] END OF REPORT
[2021-05-09 13:27] VITALS: BP 142/48
--- NOTE | 2021-05-09 14:25 | NUR ---
OT NOTE: TOILET TRANSFERS WITH MOD ASSIST. PT REMAINS FEARFUL OF R KNEE BUCKLING. TOILET HYGIENE WITH MAX ASSIST; FEEDING AND SIMPLE GROOMING WITH SET UP; PT WAITING FOR DC TO RONY GUO OTR/L
--- NOTE | 2021-05-10 13:42 | MORECARE ---
CASE MANAGEMENT DISCHARGE SUMMARY PATIENT: MANUEL QUEZADA UNIT: [id number] ADM DATE: 04/26/21 AGE: 75 : 44 SEX: F ROOM/BED: D.[facility] AUTHOR: OZIEL,DOC PHYSICIAN: REFERRING PHYSICIAN: MANPREET JUNE MD DATE OF SERVICE: 05/10/21 Case Management Discharge Planning Summary COMMENTS ENTERED DATE: 05/09/21 11:57 CT COMMENT TYPE: Discharge Planning REVIEWER: Renetta Guidry [facility] WILL HEAVY EQUIPMENT SERVICE MANAGER PATIENT TODAY FOR TRANSPORT TO THEIR FACILITY. PATIENT IN AGREEMENT. NO CHANGES TO PLAN. IMM GIVEN, SIGNED AND COPY PLACED ON CHART. ENTERED DATE: 05/07/21 11:54 CT COMMENT TYPE: Discharge Planning REVIEWER: Renetta Guidry [facility] HAS DECLINED THIS PATIENT FOR FINANCIAL REASONS. I HAVE FAXED HER REFERRAL TO [facility] AND NOTIFIED THEM. WAITING CALL BACK. CM TO FOLLOW AND ASSIST NEEDED. ENTERED DATE: 05/03/21 14:53 CT COMMENT TYPE: Discharge Planning REVIEWER: Renetta Brea PATIENT INSURANCE HAS DENIED INPATIENT REHAB. I SPOKE WITH HER AND SHE WOULD LIKE REHAB AT [facility] OR [facility] IN [place]. I AM FAXING A REFERRAL TO [facility] NOW[facility] CM TO FOLLOW AND ASSIST NEEDED. DCP REVIEW SUMMARY ANTICIPATED D/C DATE: EXPECTED LOS : CASE STATUS: DCP Initiated INITIAL REVIEW: 04/26/2021 INITIAL REVIEWER: Renetta Guidry FINAL DISCHARGE DISPOSITION: : FINAL REVIEWER: FINAL REVIEW DATE: DCP Focus Questions & Answers DCP Screen QUESTION: ANSWER High Risk Factors: : Poor health literacy DCP Evaluation QUESTION: ANSWER Patient's ability to cope with chronic illness : d. No chronic illness Would patient like to participate in any Care Coordination programs (if applicable): : Not applicable Mental health screen: : No mental health history DCP Re-evaluation QUESTION: ANSWER Would patient like to participate in any Care Coordination programs (if applicable): : Not applicable PROVIDER NETWORKING REVIEW DATE: 05/03/2021 SERVICE TYPE: Jail Facility REVIEWER: Renetta Guidry REVIEW DATE: 05/03/2021 SERVICE TYPE: Jail Facility REVIEWER: Renetta Guidry PROVIDER: FINAL PROVIDER? : FINAL DATE/TIME: CT PATIENT: MANUEL QUEZADA ENCOUNTER: [id number] MEDICAL RECORD#: [id number] ADMISSION DATE: 04/26/2021 DISCHARGE DATE: 05/09/2021 ATTENDING MD: TANESHA: AGE: 75 MARITAL STATUS: M DC PLAN ID: [id number] FACILITY: [facility] PRINTED ON: 05/10/21 13:41 CT All edits/amendments must be made on the electronic document DICTATION DATE: 05/10/211340 VICE PRESIDENT OF [employer]AD[employer] AFFAIRS: ALIREZA 05/10/21 1341 RPT#: [id number] DC DATE:05/09/21 STATUS: DIS IN [facility] [address] [place] [address] END OF REPORT
== END 2021-05-09 13:40 | DRG 563 ==
LOC: D.ER 13:14 → D.MS 15:00 → D.EDHOLD 15:00 → D.MS 17:17
PROVIDERS: Emergency Medicine; Family Medicine; ADMIT Family Medicine; ATTEND Family Medicine
DX: S42.491A Other displaced fracture of lower end of right humerus, initial encounter for closed fracture (principal); N17.9 Acute kidney failure, unspecified; Z68.42 Body mass index [BMI] 45.0-49.9, adult; G72.81 Critical illness myopathy; W19.XXXA Unspecified fall, initial encounter; E87.6 Hypokalemia; R74.01 Elevation of levels of liver transaminase levels; E11.649 Type 2 diabetes mellitus with hypoglycemia without coma; R25.1 Tremor, unspecified; K21.9 Gastro-esophageal reflux disease without esophagitis; F41.9 Anxiety disorder, unspecified; M19.90 Unspecified osteoarthritis, unspecified site; H91.90 Unspecified hearing loss, unspecified ear; E66.01 Morbid (severe) obesity due to excess calories